=== PATIENT | male | born 1950 | race Caucasian/White ===

== ENCOUNTER 2018-10-18 12:22 | Inpatient (IN) | payer MEDICARE ==
[~2018-10-18] VITALS: Ht 170.2 cm; Wt 141.3 kg
[2018-10-18] MEDS ORDERED: SODIUM CHLORIDE FLUSH 10ML SYR IVF ONE (13:00)
[2018-10-18 13:27] LABS: BASOPHILS # (AUTO) 0.04 x10^3/uL (0-0.1); BASOPHILS % (AUTO) 1 % (0-1); EOSINOPHILS # (AUTO) 0.14 x10^3/uL (0-0.4); EOSINOPHILS % (AUTO) 2 % (1-7); LYMPHOCYTES # (AUTO) 0.88 x10^3/uL (1-3.4); LYMPHOCYTES % (AUTO) 14 % (22-44); MD NO; MEAN CORPUSCULAR HEMOGLOBIN 29.6 pg (27.5-34.5); MEAN CORPUSCULAR HGB CONC 32.1 g/dL (33.2-36.2); MEAN CORPUSCULAR VOLUME 92.1 fL (81-97); MEAN PLATELET VOLUME 6.9 fL (7.4-10.4); MONOCYTES # (AUTO) 0.36 x10^3/uL (0.2-0.8); MONOCYTES % (AUTO) 6 % (2-9); NEUTROPHILS # (AUTO) 4.78 x10^3/uL (1.8-6.8); NEUTROPHILS % (AUTO) 77 % (42-75); PLATELET COUNT 177 x10^3/uL (130-400); RED BLOOD COUNT 5.36 x10^6/uL (4.38-5.82); RED CELL DISTRIBUTION WIDTH 16.2 % (9.4-14.8)
[2018-10-18 13:39] LABS: ALBUMIN 3.5 g/dL (3.4-5.0); ANION GAP 5 mmol/L (5-15); CALCIUM 8.8 mg/dL (8.5-10.1); CHLORIDE 109 mmol/L (98-107)
[2018-10-18 13:43] LABS: TROPONIN I < 0.015 ng/mL (0.000-0.045)
--- NOTE | 2018-10-18 13:43 | NUR ---
report received from task RN Destiny Dutton, patient safe in room, awaiting lab results, no needs at this time.
[2018-10-18] MEDS ORDERED: ALBUTEROL/IPRATROPIUM 2.5MG/0.5MG, 3 ML NPPB ONE (14:00)
[2018-10-18] MEDS ORDERED: AZITHROMYCIN 500 MG in SODIUM CHLORIDE 0.9% 250 ML IV ONE (14:00)
[2018-10-18] MEDS ORDERED: CEFTRIAXONE PMX 1GM/50ML 50 ML ONE (14:10)
[2018-10-18] MEDS: CEFTRIAXONE PMX 1GM/50ML 50 ML IV ONE ×2 (14:13→15:17)
[2018-10-18] MEDS ORDERED: ALBUTEROL/IPRATROPIUM 2.5MG/0.5MG, 3 ML ONE (14:29)
--- NOTE | 2018-10-18 14:39 | NUR ---
POC discussed with hospitalist Barrington Bearden blood cx x2 ordered, abx held and ready to run after blood draw
--- NOTE | 2018-10-18 14:47 | NUR ---
This RN has called [facility] on [facility] for Med list: ALLOPURINOL 300MG qDAY MINOXIDIL 1O MG QDAY CARVEDILOL 25 MG TABS, 2 TABS BID SIMVASTATIN 40 MG QDAY AMLODIPINE 5 MG QDAY LISINOPRIL 40mg QDAY GLIMIPERIDE 2MG QDAY
[2018-10-18] MEDS ORDERED: MINO10TA PO (14:53)
[2018-10-18] MEDS ORDERED: ALLO100T30 PO (14:53)
[2018-10-18] MEDS ORDERED: GLIM2TAB2 PO (14:53)
[2018-10-18] MEDS ORDERED: AMLO-150 PO (14:53)
[2018-10-18] MEDS ORDERED: LISI40TA PO (14:53)
[2018-10-18] MEDS ORDERED: CARV-39 PO (14:53)
[2018-10-18] MEDS ORDERED: SIMV40TA3 PO (14:53)
[2018-10-18] MEDS ORDERED: KETOROLAC 30 MG/1 ML IVPush PRN (15:00)
[2018-10-18] MEDS ORDERED: FUROSEMIDE 20 MG/2 ML IV ONE (15:00)
[2018-10-18] MEDS ORDERED: ONDANSETRON 2MG/ML, 2ML IVPB PRN (15:00)
[2018-10-18] MEDS ORDERED: PHARMACY MAY ADJ FOR RENAL FX MC PRN (15:00)
[2018-10-18] MEDS ORDERED: DOCUSATE 100 MG CAPSULE PO PRN (15:00)
[2018-10-18] MEDS ORDERED: ACETAMINOPHEN 325 MG TABLET PO PRN (15:00)
[2018-10-18] MEDS ORDERED: BENZONATATE 100 MG CAPSULE PO PRN (15:00)
--- NOTE | 2018-10-18 15:06 | NUR ---
report to SELINA Linda, patient updated of transfer plan, IV abx running upon transfer, Blood cx x2 have been drawn, VSS on room air, spouse accompanying, no other needs at this time.
[2018-10-18] MEDS: ENOXAPARIN 40 MG/0.4 ML SQ SCH (15:20)
[2018-10-18 15:48] VITALS: BP 129/73
[2018-10-18] MEDS: DOXYCYCLINE 100 MG in DEXTROSE 5% 250 ML IV SCH (16:06)
[2018-10-18 19:50] VITALS: BP 128/73
[2018-10-18] MEDS: GUAIFENESIN ER 600 MG TABLET PO SCH (21:19)
[2018-10-19 00:48] VITALS: BP 108/62
[2018-10-19] MEDS: DOXYCYCLINE 100 MG in DEXTROSE 5% 250 ML IV SCH ×2 (03:06→15:07)
[2018-10-19 05:43] LABS: ANION GAP 6 mmol/L (5-15); CALCIUM 8.3 mg/dL (8.5-10.1); CHLORIDE 105 mmol/L (98-107); CREATININE 0.88 mg/dL (0.7-1.3)
[2018-10-19 05:50] LABS: BASOPHILS % (AUTO) 0 % (0-1); EOSINOPHILS % (AUTO) 0 % (1-7); LYMPHOCYTES # (AUTO) 0.59 x10^3/uL (1-3.4); LYMPHOCYTES % (AUTO) 9 % (22-44); MD NO; MEAN CORPUSCULAR HEMOGLOBIN 30.3 pg (27.5-34.5); MEAN CORPUSCULAR HGB CONC 32.8 g/dL (33.2-36.2); MEAN CORPUSCULAR VOLUME 92.4 fL (81-97); MONOCYTES # (AUTO) 0.27 x10^3/uL (0.2-0.8); MONOCYTES % (AUTO) 4 % (2-9); NEUTROPHILS # (AUTO) 5.57 x10^3/uL (1.8-6.8); NEUTROPHILS % (AUTO) 87 % (42-75); PLATELET COUNT 176 x10^3/uL (130-400); RED BLOOD COUNT 5.07 x10^6/uL (4.38-5.82); RED CELL DISTRIBUTION WIDTH 16.2 % (9.4-14.8)
[2018-10-19 08:32] VITALS: BP 133/77
[2018-10-19] MEDS: GUAIFENESIN ER 600 MG TABLET PO SCH ×2 (09:09→20:28)
[2018-10-19] MEDS ORDERED: KETOROLAC 30 MG/1 ML IVPush PRN (11:00)
[2018-10-19] MEDS ORDERED: MINOXIDIL 10 MG TABLET PO SCH (11:00)
[2018-10-19] MEDS: LISINOPRIL 20 MG TABLET PO SCH (12:23)
[2018-10-19] MEDS: GLIMEPIRIDE 1 MG TABLET PO SCH (12:23)
[2018-10-19] MEDS: ALLOPURINOL 300 MG TABLET PO SCH (12:24)
[2018-10-19] MEDS: AMLODIPINE 5 MG TABLET PO SCH (12:24)
[2018-10-19] MEDS: CARVEDILOL 25 MG TABLET PO SCH ×2 (12:24→20:28)
[2018-10-19 13:56] VITALS: BP 142/76
[2018-10-19] MEDS: ENOXAPARIN 40 MG/0.4 ML SQ SCH (15:07)
[2018-10-19] MEDS: CEFTRIAXONE PMX 1GM/50ML 50 ML IVPB SCH (15:07)
[2018-10-19 19:20] VITALS: BP 134/74
[2018-10-19] MEDS: SIMVASTATIN 40 MG TABLET PO SCH (20:29)
[2018-10-19] MEDS: MINOXIDIL 10 MG TABLET PO SCH (20:29)
[2018-10-20 01:13] VITALS: BP 132/71
[2018-10-20] MEDS: DOXYCYCLINE 100 MG in DEXTROSE 5% 250 ML IV SCH (02:48)
[2018-10-20 06:54] VITALS: BP 166/85
[2018-10-20] MEDS: LISINOPRIL 20 MG TABLET PO SCH (10:21)
[2018-10-20] MEDS: CARVEDILOL 25 MG TABLET PO SCH ×2 (10:21→20:31)
[2018-10-20] MEDS: ALLOPURINOL 300 MG TABLET PO SCH (10:21)
[2018-10-20] MEDS: AMLODIPINE 5 MG TABLET PO SCH (10:21)
[2018-10-20] MEDS: GUAIFENESIN ER 600 MG TABLET PO SCH ×2 (10:21→20:30)
[2018-10-20] MEDS: GLIMEPIRIDE 1 MG TABLET PO SCH (10:25)
[2018-10-20 12:16] VITALS: BP 120/74
[2018-10-20] MEDS ORDERED: FUROSEMIDE 20 MG/2 ML ONE (14:41)
[2018-10-20] MEDS: CEFTRIAXONE PMX 1GM/50ML 50 ML IVPB SCH (14:43)
[2018-10-20] MEDS: FUROSEMIDE 20 MG/2 ML IV SCH (14:44)
[2018-10-20] MEDS: ENOXAPARIN 40 MG/0.4 ML SQ SCH (15:40)
[2018-10-20] MEDS: DOXYCYCLINE 100MG TABLET PO SCH ×2 (17:11→20:31)
[2018-10-20 18:40] VITALS: BP 130/73
[2018-10-20] MEDS: SIMVASTATIN 40 MG TABLET PO SCH (20:31)
[2018-10-20] MEDS: MINOXIDIL 10 MG TABLET PO SCH (20:31)
[2018-10-21 00:45] VITALS: BP 101/60
[2018-10-21 08:52] VITALS: BP 144/81
[2018-10-21] MEDS: FUROSEMIDE 20 MG/2 ML IV SCH (08:57)
[2018-10-21] MEDS: CARVEDILOL 25 MG TABLET PO SCH ×2 (08:57→20:17)
[2018-10-21] MEDS: GLIMEPIRIDE 1 MG TABLET PO SCH (08:57)
[2018-10-21] MEDS: GUAIFENESIN ER 600 MG TABLET PO SCH ×2 (08:57→20:17)
[2018-10-21] MEDS: LISINOPRIL 20 MG TABLET PO SCH (08:58)
[2018-10-21] MEDS: AMLODIPINE 5 MG TABLET PO SCH (08:58)
[2018-10-21] MEDS: DOXYCYCLINE 100MG TABLET PO SCH ×2 (08:58→20:17)
[2018-10-21] MEDS: ALLOPURINOL 300 MG TABLET PO SCH (08:58)
[2018-10-21] MEDS ORDERED: FUROSEMIDE 20 MG/2 ML IV SCH (09:00)
[2018-10-21 14:22] VITALS: BP 115/64
[2018-10-21] MEDS: CEFTRIAXONE PMX 1GM/50ML 50 ML IVPB SCH (15:42)
[2018-10-21] MEDS: ENOXAPARIN 40 MG/0.4 ML SQ SCH (16:00)
[2018-10-21 20:15] VITALS: BP 121/74
[2018-10-21] MEDS: MINOXIDIL 10 MG TABLET PO SCH (20:17)
[2018-10-21] MEDS: SIMVASTATIN 40 MG TABLET PO SCH (20:18)
[2018-10-22 01:02] VITALS: BP 111/65
[2018-10-22 06:01] LABS: ANION GAP 6 mmol/L (5-15); CALCIUM 8.3 mg/dL (8.5-10.1); CHLORIDE 104 mmol/L (98-107)
[2018-10-22 06:02] LABS: CREATININE 0.82 mg/dL (0.7-1.3)
[2018-10-22 06:13] LABS: BASOPHILS # (AUTO) 0.01 x10^3/uL (0-0.1); BASOPHILS % (AUTO) 0 % (0-1); EOSINOPHILS % (AUTO) 0 % (1-7); LYMPHOCYTES # (AUTO) 1.46 x10^3/uL (1-3.4); LYMPHOCYTES % (AUTO) 18 % (22-44); MD NO; MEAN CORPUSCULAR HGB CONC 32.7 g/dL (33.2-36.2); MEAN CORPUSCULAR VOLUME 91.6 fL (81-97); MEAN PLATELET VOLUME 6.9 fL (7.4-10.4); MONOCYTES % (AUTO) 6 % (2-9); NEUTROPHILS # (AUTO) 6.09 x10^3/uL (1.8-6.8); NEUTROPHILS % (AUTO) 76 % (42-75); PLATELET COUNT 210 x10^3/uL (130-400); RED BLOOD COUNT 5.11 x10^6/uL (4.38-5.82); RED CELL DISTRIBUTION WIDTH 16.3 % (9.4-14.8)
[2018-10-22 07:42] VITALS: BP 125/77
[2018-10-22] MEDS: GLIMEPIRIDE 1 MG TABLET PO SCH (08:48)
[2018-10-22] MEDS: AMLODIPINE 5 MG TABLET PO SCH (08:50)
[2018-10-22] MEDS: GUAIFENESIN ER 600 MG TABLET PO SCH (08:50)
[2018-10-22] MEDS: FUROSEMIDE 20 MG/2 ML IV SCH (08:50)
[2018-10-22] MEDS: CARVEDILOL 25 MG TABLET PO SCH (08:50)
[2018-10-22] MEDS: DOXYCYCLINE 100MG TABLET PO SCH (08:51)
[2018-10-22] MEDS: LISINOPRIL 20 MG TABLET PO SCH (08:51)
[2018-10-22] MEDS: ALLOPURINOL 300 MG TABLET PO SCH (08:51)
[2018-10-22] MEDS ORDERED: DOXY100T PO (09:51)
[2018-10-22] MEDS ORDERED: ALBU8.5H8 INH (09:51)
[2018-10-22] MEDS ORDERED: AMOX1TAB64 PO (09:51)
[2018-10-22] MEDS ORDERED: METH4TAB2 PO (09:51)
[2018-10-22] MEDS ORDERED: FAMO-79 PO (09:51)
== END 2018-10-22 14:34 | disposition home or self-care (01) | DRG 177 ==
LOC: ED 13:35 → EDIP 14:09 → 3NE 15:12
PROVIDERS: ADMIT Family Medicine; ATTEND Family Medicine
PROC: 5A09357 Assistance with Respiratory Ventilation, Less than 24 Consecutive Hours, Continuous Positive Airway Pressure (ICD-10-PCS; principal; 2018-10-20)
DX: J15.6 Pneumonia due to other Gram-negative bacteria (principal); J96.01 Acute respiratory failure with hypoxia; J98.11 Atelectasis; E11.9 Type 2 diabetes mellitus without complications; E78.5 Hyperlipidemia, unspecified; G47.33 Obstructive sleep apnea (adult) (pediatric); I11.0 Hypertensive heart disease with heart failure; I27.20 Pulmonary hypertension, unspecified; I50.9 Heart failure, unspecified; J98.01 Acute bronchospasm; Z82.3 Family history of stroke; Z99.81 Dependence on supplemental oxygen
CPT/HCPCS: 36415; 71045; 80048; 82040; 83605; 83735; 83880; 84145; 84484; 85025; 87040; 87070; 87205; 93005; 93306; 94640; 94660; 99285; G0378; J0696; J7060; J7620; J1940; J7512

== ENCOUNTER → 2019-01-04 | Outpatient (CLI) | payer MEDICARE ==
[~2019-01-04] MED LIST: ALBU8.5H8 INH; ALLO100T30 PO; AMLO-150 PO; AMOX1TAB64 PO; CARV-39 PO; DOXY100T PO; FAMO-79 PO; GLIM2TAB2 PO; LISI40TA PO; METH4TAB2 PO; MINO10TA PO; REGADENOSON 0.4 MG/5 ML SYRINGE ONE; SIMV40TA3 PO
== END | disposition home or self-care (01) ==
LOC: CVU 08:55
PROVIDERS: ATTEND Internal Medicine Cardiovascular Disease
DX: I08.1 Rheumatic disorders of both mitral and tricuspid valves (principal); I65.23 Occlusion and stenosis of bilateral carotid arteries; I11.0 Hypertensive heart disease with heart failure; I50.9 Heart failure, unspecified; G47.30 Sleep apnea, unspecified; I27.20 Pulmonary hypertension, unspecified; E78.5 Hyperlipidemia, unspecified
CPT/HCPCS: 0399T; 78452; 93017; 93306; 93880; A9502; J2785